=== PATIENT | female | born 1935 | race Caucasian/White ===

== ENCOUNTER → 2021-04-27 | Outpatient (CLI) | payer OTHER ==
[~2021-04-27] MED LIST: AMLODIPINE BESY10 MG PO; AMMONIUM LACTATE; CALCIUM 600 +1 EAC7 PO; DOK100 MG PO; DONEPEZIL HCL10 MG PO; ELIQUIS 5 MG TAB5 MG PO; ESCITALOPRAM OX20 MG PO; FERROUS SULFAT325 MG PO; FEXOFENADINE H180 MG PO; FLONASE; KLONOPIN TAB 00.5 MG PO; LIDOCAINE; LISINOPRIL20 MG PO; MAGNESIUM OXID400 M2 PO; MONTELUKAST SOD10 MG PO; MUCUS RELIEF400 MG PO; MUPIROCIN EXT; NAMENDA10 MG PO; NOVOLOG; PAIN RELIEF500 M1 PO; PROTONIX40 M1 PO; SIMVASTATIN10 MG PO; TOUJEO MAX300 UNIT/1 SQ; ULTRAM50 MG PO; VITAMIN B; VITAMIN C1000 MG PO; VITAMIN D; ZINC
[2021-04-27 11:30] LABS: HEMOGLOBIN 15.7 gm/dl (12.3-15.3); RED BLOOD COUNT 5.04 M/UL (4.00-5.10); WHITE BLOOD COUNT 10.5 K/UL (4.5-11.0)
[2021-04-27 12:04] LABS: BUN/CREATININE RATIO 22 (0-10)
== END ==
LOC: OPSV2 08:30
PROVIDERS: Obstetrics & Gynecology
DX: Z01.818 Encounter for other preprocedural examination (principal); N95.0 Postmenopausal bleeding
CPT/HCPCS: 36415; 80053; 85025; 93005